=== PATIENT | male | born 1940 | race Caucasian/White ===

== ENCOUNTER → 2018-05-11 10:39 | Outpatient (CLI) | payer MEDICARE, SELFPAY ==
--- NOTE | 2018-05-11 | DI.US.S_ITS ---
PROCEDURE: US CAROTID DOPPLER BI INDICATIONS: CAROTID OCCLUSIVE DISEASE TECHNIQUE: Color and pulse Doppler interrogation was performed of both carotid systems, with image documentation and velocity measurements. COMPARISON: [facility], , CAROTID ARTERY DOPPLER BILAT, 12/26/2014, 9:00. FINDINGS: Stenosis calculations are based on SRU (Society of [employer] in Ultras[employer]) criteria. Right side: Brachial blood pressure: 160/81 mm Hg. Common carotid artery peak systolic velocity: 76 cm/sec. Internal carotid artery peak systolic velocity: 100 cm/sec. Internal carotid artery end diastolic velocity: 30 cm/sec. External carotid artery peak systolic velocity: 179 cm/sec. ICA/CCA peak systolic ratio: 1.3. Haile scale imaging description: Mild soft plaque Percent internal carotid artery stenosis: Less than 50% stenosis. Vertebral artery: Flow direction is antegrade. Left side: Brachial blood pressure: 160/74 mm Hg. Common carotid artery peak systolic velocity: 50 cm/sec. Internal carotid artery peak systolic velocity: 391 cm/sec. Internal carotid artery end diastolic velocity: 142 cm/sec. External carotid artery peak systolic velocity: 180 cm/sec. ICA/CCA peak systolic ratio: 7.8. Haile scale imaging description: A high-grade stenosis by calcific and soft plaque Percent internal carotid artery stenosis: 70% to near occlusion, with progression from the prior study in November of 2014. 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 Findings discussed with Dr. Ojeda. Dictated by: Allan Dumont M.D. on 05/11/2018 at 12:16 Approved by: Allan Dumont M.D. on 05/11/2018 at 12:22
== END ==
PROVIDERS: Family Provider Family Medicine; PCP Family Medicine; Visit Provider Family Medicine
DX: I65.23 Occlusion and stenosis of bilateral carotid arteries (principal)
CPT/HCPCS: 93880

== ENCOUNTER → 2019-10-03 13:29 | Outpatient (CLI) | payer MEDICARE, OTHER, SELFPAY ==
--- NOTE | 2019-10-03 | DI.RAD.S_ITS ---
PROCEDURE: XR CHEST 2V INDICATIONS: cough TECHNIQUE: 2 views of the chest were acquired. COMPARISON: [facility], CHEST 2 VIEW, 10/27/2016, 8:57. [facility], CHEST 2 VIEW, 08/27/2015, 8:27. FINDINGS: Surgical changes and devices: None. Lungs and pleura: Lungs are clear. No pleural effusions or pneumothorax. Mediastinum: Mediastinal contours are normal. Heart size is normal. Bones and chest wall: No suspicious bony abnormalities. Soft tissues appear unremarkable. IMPRESSION: Normal for age, source of current cough symptoms is not seen. Dictated by: Allan Dumont M.D. on 10/03/2019 at 14:32 Approved by: Allan Dumont M.D. on 10/03/2019 at 14:33
== END ==
PROVIDERS: Family Provider Family Medicine; PCP Family Medicine; Referring Provider Family Medicine; Visit Provider Family Medicine
DX: R05 Cough (principal)
CPT/HCPCS: 71046

== ENCOUNTER → 2020-07-31 08:02 | Outpatient (CLI) | payer MEDICARE, OTHER, SELFPAY ==
--- NOTE | 2020-07-31 | DI.US.S_ITS ---
PROCEDURE: US ABD AORTA ANEURYSM SCREEN INDICATIONS: SCREENING TECHNIQUE: Real time scanning was performed of the aorta and iliac arteries, with image documentation. COMPARISON: None. FINDINGS: Aorta: Proximal aortic diameter measures 2.5 cm. Mid-aorta measures 1.9 cm. Distal aortic diameter is 1.9 cm. Iliac arteries: Right common iliac artery measures 1.2 cm. Left common iliac artery measures 1.0 cm. IMPRESSION: No aneurysm found. Dictated by: Allan Dumont M.D. on 07/31/2020 at 8:46 Approved by: Allan Dumont M.D. on 07/31/2020 at 8:47
== END ==
PROVIDERS: PCP Family Medicine; Referring Provider Family Medicine; Visit Provider Family Medicine
DX: Z13.6 Encounter for screening for cardiovascular disorders (principal)
CPT/HCPCS: 76706

== ENCOUNTER → 2023-06-25 11:03 | Outpatient (CLI) | payer MEDICARE, OTHER, SELFPAY ==
--- NOTE | 2023-06-25 11:08 | DI.CT.S_ITS ---
PROCEDURE: CT LUNG LOW DOSE SCREENING INDICATIONS: Personal history of nicotine dependence TECHNIQUE: Noncontrast 2.0-2.5 mm thick sections acquired from the pulmonary apices to the posterior costophrenic angles. 7 mm thick axial MIP, and 5 mm coronal and sagittal reformats were then acquired. For radiation dose reduction, the following was used: automated exposure control, adjustment of mA and/or kV according to patient size. COMPARISON: None. FINDINGS: Image quality: Diagnostic. Lower Neck: No enlarged lymph nodes. Thyroid: No thyroid nodules which require sonographic follow up, per consensus guidelines. Axillae: No enlarged lymph nodes. Chest Wall: Unremarkable. Bones: No acute fractures. No aggressive appearing lytic or blastic osseous lesions. Mild multilevel degenerative changes of the spine. Lungs and Pleura: No pneumothorax or pleural effusions. Bilateral pleural base calcifications. Right lower lobe linear atelectasis/scar. Heart: Heart size is normal. No pericardial effusion. Mild three-vessel coronary calcification. Thoracic Vessels: The aorta and pulmonary arteries demonstrate normal size. Mild calcification of the thoracic aorta. Mediastinum and Faye: No enlarged lymph nodes. Esophagus: No wall thickening. No hiatal hernia. Upper Abdomen: Visualized upper abdomen solid organs and bowel loops appear normal. Calcification of the abdominal aorta. IMPRESSION: 1. No suspicious pulmonary nodules. LUNG-RADS 1; continued annual screening, if eligible. 2. 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 Dictated by: Michael Staton M.D. on 06/25/2023 at 17:01 Approved by: Michael Staton M.D. on 06/25/2023 at 17:10
== END ==
PROVIDERS: PCP Family Medicine; Referring Provider Family Medicine; Visit Provider Family Medicine
DX: Z87.891 Personal history of nicotine dependence (principal); Z12.2 Encounter for screening for malignant neoplasm of respiratory organs; J92.9 Pleural plaque without asbestos; I25.10 Atherosclerotic heart disease of native coronary artery without angina pectoris; I70.0 Atherosclerosis of aorta
CPT/HCPCS: 71271

== ENCOUNTER → 2024-06-26 12:44 | Outpatient (CLI) | payer MEDICARE, OTHER, SELFPAY ==
--- NOTE | 2024-06-26 12:46 | DI.CT.S_ITS ---
PROCEDURE: CT LUNG LOW DOSE SCREENING INDICATIONS: smoking history TECHNIQUE: Noncontrast 2.0-2.5 mm thick sections acquired from the pulmonary apices to the posterior costophrenic angles. 7 mm thick axial MIP, and 5 mm coronal and sagittal reformats were then acquired. For radiation dose reduction, the following was used: automated exposure control, adjustment of mA and/or kV according to patient size. COMPARISON: [facility], CT, CT LUNG LOW DOSE SCREENING, 06/25/2023, 11:12. FINDINGS: Image quality: Diagnostic. Some images are limited by beam hardening artifacts. Again noted are the numerous right greater than left bilateral partially calcified pleural plaques consistent with prior asbestos exposure. This may predispose to mesothelioma and with the right posterior solid soft tissue pleural thickening, increased compared to the prior exam and measuring up to 1.7 cm in thickness (sagittal series 5, image 80) as well as some asymmetric intercostal muscle enlargement/edema right greater than left (axial series 2, image 29) measuring up to 1.3 cm follow-up is needed to exclude mesothelioma on the right. PET CT may be useful for further evaluation. The lesions are likely not amenable to CT-guided biopsy. Otherwise there is pleural-parenchymal scarring in the right lower lobe posterior and lateral basal. No other pulmonary nodules. Moderate calcifications of the aortic valve, mitral valve, mitral annulus, coronary arteries, aortic arch, proximal arch vessels, descending aorta, proximal renal arteries again noted unchanged. Heart size within normal limits. No pneumothorax, no pleural effusion, no pericardial effusion no lobar consolidation. Moderate degenerative changes lower cervical and to a lesser degree thoracic spine without CT evidence of fracture, subluxation or central stenosis. Lower Neck: No enlarged lymph nodes. Thyroid: No thyroid nodules which require sonographic follow up, per consensus guidelines. Axillae: No enlarged lymph nodes. Thoracic Vessels: The aorta and pulmonary arteries demonstrate normal size. Mediastinum and Faye: No enlarged lymph nodes. Esophagus: No wall thickening. No hiatal hernia. Upper Abdomen: Visualized upper abdomen solid organs and bowel loops appear normal. IMPRESSION: Numerous pleural plaques with increased soft tissue pleural thickening on the right as discussed above suspicious for early findings of mesothelioma. Follow-up is needed. PET CT may be useful for further evaluation. Otherwise no suspicious pulmonary nodules. Dictated by: Faraz Tapia M.D. on 06/26/2024 at 16:07 Approved by: Faraz Tapia M.D. on 06/26/2024 at 16:44
== END ==
PROVIDERS: PCP Family Medicine; Referring Provider Family Medicine; Visit Provider Family Medicine
DX: Z12.2 Encounter for screening for malignant neoplasm of respiratory organs (principal); Z87.891 Personal history of nicotine dependence; J92.9 Pleural plaque without asbestos; M47.812 Spondylosis without myelopathy or radiculopathy, cervical region; M47.814 Spondylosis without myelopathy or radiculopathy, thoracic region; I25.10 Atherosclerotic heart disease of native coronary artery without angina pectoris; I34.81 Nonrheumatic mitral (valve) annulus calcification; I70.0 Atherosclerosis of aorta
CPT/HCPCS: 71271